=== PATIENT | female | born 1960 | race Caucasian/White ===

== ENCOUNTER 2018-11-10 22:30 | Inpatient (IN) | payer MEDICARE ==
[~2018-11-10] VITALS: Ht 167.6 cm; Wt 65.3 kg
--- NOTE | 2018-11-10 22:52 | NUR ---
BIBSELF C/O: GEN ABDOMINAL PAIN 11/15 SINCE THIS MORNING. +N/V, IN BED AWAITING MED EVAL
[2018-11-10] MEDS ORDERED: MORPHINE SULFATE INJ 4 MG/ML DISP.SYRIN ONE (22:54)
[2018-11-10] MEDS ORDERED: IV NS 0.9% 1,000 ML BAG IV ONE (23:00)
[2018-11-10] MEDS ORDERED: MORPHINE SULFATE INJ 2 MG/ML DISP.SYRIN IV ONE (23:00)
[2018-11-10 23:11] LABS: BASOPHILS # (AUTO) 0.1 /CMM (0.0-0.2); BASOPHILS % (AUTO) 0.7 % (0.0-2.0); EOSINOPHILS % (AUTO) 0.4 % (0.0-6.0); HEMATOCRIT 52 % (33-45); HEMOGLOBIN 17.8 g/dL (11.5-14.8); LYMPHOCYTES # (AUTO) 1.7 /CMM (0.8-4.8); LYMPHOCYTES % (AUTO) 14.9 % (20.0-44.0); MEAN CORPUSCULAR HGB CONC 34 g/dl (31.0-36.0); MEAN CORPUSCULAR VOLUME 92 fL (82-100); MONOCYTES # (AUTO) 0.5 /CMM (0.1-1.30); MONOCYTES % (AUTO) 4.2 % (2.0-12.0); NEUTROPHILS # (AUTO) 9.1 /CMM (1.8-8.9); NEUTROPHILS % (AUTO) 79.8 % (43.0-81.0); PLATELET COUNT (AUTO) 267 /CMM (150-450); RED BLOOD CELL COUNT(AUTO) 5.63 MIL/uL (4.0-5.2); WHITE BLOOD COUNT (AUTO) 11.4 K/uL (4.3-11.0)
[2018-11-10] MEDS ORDERED: IV NS 0.9% 250 ML IV ONE (23:12)
[2018-11-10] MEDS ORDERED: IOHEXOL-300 100 ML VIAL IV ONE (23:12)
[2018-11-10] MEDS ORDERED: CT SWABBABLE VALVE TRANS SET 1 EA INFUS.SET MC ONE (23:12)
[2018-11-10 23:18] LABS: CALCIUM, SERUM 10.6 mg/dL (8.5-10.1); CARBON DIOXIDE 21 mmol/L (21-32); CHLORIDE 99 mmol/L (98-107); CREATININE 1.5 mg/dL (0.6-1.3); GLUCOSE 135 mg/dL (74-106); POTASSIUM 3.9 mmol/L (3.5-5.1); SODIUM SERUM 139 mmol/L (136-145); UREA NITROGEN, BLOOD 21 mg/dL (7-18)
[2018-11-10 23:23] LABS: ALANINE AMINOTRANSFERASE 84 U/L (12-78); ALBUMIN 4.1 g/dL (3.4-5.0); ALKALINE PHOSPHATASE 124 U/L (46-116); ASPARTATE AMINOTRANSFERASE 62 U/L (15-37); BILIRUBIN,DIRECT 0.2 mg/dL (0.0-0.2); BILIRUBIN,TOTAL 0.7 mg/dL (0.2-1.0); LIPASE 99 U/L (73-393); TOTAL PROTEIN, SERUM 8.5 g/dL (6.4-8.2)
[2018-11-10] MEDS ORDERED: ONDANSETRON HCL/PF 4 MG/2 ML VIAL ONE (23:28)
[2018-11-10] MEDS ORDERED: ONDANSETRON HCL/PF 4 MG/2 ML VIAL IV ONE (23:30)
--- NOTE | 2018-11-11 00:58 | NUR ---
BED ASSIGNMENT 322-2
--- NOTE | 2018-11-11 01:06 | NUR ---
REPORT GIVEN TO GISSELL BELL
[2018-11-11 01:30] VITALS: BP 137/86
[2018-11-11] MEDS ORDERED: Z GUARD REMEDY 2 OZ OINT TP PRN (01:30)
[2018-11-11] MEDS ORDERED: MAG HYDROX/AL HYDROX/SIMETH 30 ML UDC PO PRN (01:30)
[2018-11-11] MEDS ORDERED: MAGNESIUM HYDROXIDE 30 ML UDC PO PRN (01:30)
[2018-11-11] MEDS ORDERED: HYDROCODONE/APAP 5/325MG 1 EACH TABLET PO PRN (01:30)
--- NOTE | 2018-11-11 01:30 | NUR ---
RN MS OPENING/ADMISSION NOTES RECEIVED PATIENT FROM ER VIA RNEY SAFELY TRANSFERRED TO BED, PATIENT IS AMBULATORY WITH STANDBY ASSIST, AWAKE ALERT AND ORIENTEDX4, RESPIRATIONS EVEN AND UNLABORED WITH EQUAL RISE AND FALL OF CHEST, IV SITE TO RIGHT AC #18G INTACT AND PATENT, NO REDNESS, NO INFILTRATION PRESENT, SKIN INTACT , RLE SCAR TISSUE PRESENT, NO REDNESS, BELONGINGS LIST DONE, PHOTO TAKEN PLACED IN CHART, VITAL SIGNS WNL, AT THIS TIME DENIES NAUSEA OR VOMITTING, AT THIS TIME DENIES PAIN. ORIENTED TO STAFF AND CALL LIGHT AND KEPT WITHIN REACH, SAFETY PRECAUTIONS IN PLACE LOW BED AND LOCKED, BED ALARM IN PLACE, PATIENT IS NPO STATUS AND AWARE, ALL NEEDS ATTENDED AT THIS TIME, WILL CONTINUE TO MONITOR AND ADDRESS NEEDS, WILL FOLLOW MD ORDERS.
[2018-11-11] MEDS: IV NS 0.9% 1,000 ML IV PRN ×2 (01:51→15:22)
[2018-11-11] MEDS: MORPHINE SULFATE INJ 2 MG/ML DISP.SYRIN IV PRN ×7 (01:52→19:34)
--- NOTE | 2018-11-11 01:52 | NUR ---
RN MS NOTES PATIENT STATES " I FEEL PAIN COMING BACK CAN I HAVE PAIN MEDICATION" RATES PAIN 7/10 DULL PAIN , VS WNL MORPHINE PRN GIVEN ORDERED, WILL CONTINUE TO MONITOR FOR EFFECTIVENESS, ROOM LIGHTS DIMMED.
[2018-11-11] MEDS ORDERED: OMEP20CA11 PO (02:37)
[2018-11-11] MEDS ORDERED: DEXT5TAB15 PO (02:38)
[2018-11-11] MEDS ORDERED: SERT20OR PO (02:38)
[2018-11-11] MEDS ORDERED: LOPE2CAP40 PO (02:38)
[2018-11-11 04:25] VITALS: BP 127/67
[2018-11-11] MEDS: ONDANSETRON HCL/PF 4 MG/2 ML VIAL IVP PRN ×3 (04:25→19:33)
--- NOTE | 2018-11-11 04:25 | NUR ---
ARABELLA MS NOTES PATIENT COMPLAINT OF FEELING NAUSEA AND DULL PAIN TO ABDOMEN AREA, 06/15. REQUESTING FOR PAIN MEDICATION AND NAUSEA MEDICATION, PRN ZOFRAN OFFERED AND GIVEN ORDERED, EMESIS BAD WITHIN REACH MORPHINE PRN GIVEN ORDERED, VS WNL. 127/67,94,93%RA, 18,97.9 Addendum: 11/11/18 at 0638 by GISSELL LOTT RN CLARIFICATION EMESIS BAG WITHIN REACH
--- NOTE | 2018-11-11 06:30 | NUR ---
RN MS NOTES PATIENT COMPLAINT OF DULL PAIN TO ABDOMEN AREA 09/15 REQUESTING FOR PAIN MEDICATION MORPHINE, VITAL SIGNS WNL, MORPHINE PRN GIVEN ORDERED, WILL CONTINUE TO MONITOR FOR EFFECTIVENESS.
--- NOTE | 2018-11-11 06:38 | NUR ---
RN MS CLOSING NOTES PATIENT IN BED AWAKE ALERT AND ORIENTEDX4, RESPIRATIONS EVEN AND UNLABORED WITH EQUAL RISE AND FALL OF CHEST, IV SITE TO RIGHT AC #18G INTACT AND PATENT, NO REDNESS, NO INFILTRATION PRESENT, IVF RUNNING ORDERED, SKIN INTACT , RLE SCAR TISSUE PRESENT, NO REDNESS, VITAL SIGNS REMAINED WNL, AT THIS TIME DENIES NAUSEA ZOFRAN EFFECTIVE, CALL LIGHT KEPT WITHIN REACH, SAFETY PRECAUTIONS IN PLACE LOW BED AND LOCKED, BED ALARM IN PLACE, PATIENT IS NPO STATUS AND AWARE, ALL NEEDS ATTENDED AT THIS TIME, WILL CONTINUE TO MONITOR AND ENDORSE TO NEXT SHIFT. SO FURTHER CHANGES SINCE ADMISSION.
[2018-11-11 07:07] LABS: BASOPHILS % (AUTO) 0.3 % (0.0-2.0); EOSINOPHILS % (AUTO) 0.4 % (0.0-6.0); HEMATOCRIT 45 % (33-45); HEMOGLOBIN 15.1 g/dL (11.5-14.8); LYMPHOCYTES % (AUTO) 14.2 % (20.0-44.0); MEAN CORPUSCULAR HGB CONC 34 g/dl (31.0-36.0); MEAN CORPUSCULAR VOLUME 92 fL (82-100); MONOCYTES # (AUTO) 0.5 /CMM (0.1-1.30); MONOCYTES % (AUTO) 7.4 % (2.0-12.0); NEUTROPHILS # (AUTO) 5.7 /CMM (1.8-8.9); NEUTROPHILS % (AUTO) 77.7 % (43.0-81.0); PLATELET COUNT (AUTO) 223 /CMM (150-450); RED BLOOD CELL COUNT(AUTO) 4.84 MIL/uL (4.0-5.2); WHITE BLOOD COUNT (AUTO) 7.3 K/uL (4.3-11.0)
[2018-11-11 07:39] LABS: ALBUMIN 3.2 g/dL (3.4-5.0); BILIRUBIN,TOTAL 0.5 mg/dL (0.2-1.0); CALCIUM, SERUM 8.5 mg/dL (8.5-10.1); POTASSIUM 3.9 mmol/L (3.5-5.1); TOTAL PROTEIN, SERUM 6.7 g/dL (6.4-8.2)
--- NOTE | 2018-11-11 07:45 | NUR ---
MS RN NOTES PATIENT RECEIVED RESTING INSIDE ROOM. AWAKE, ALERT AND ORIENTED X 4. NO ACUTE DISTRESS. DENIES ANY PAIN OR DISCOMFORT. NO CHANGES IN LOC NOTED. PATIENT REMAINS NPO AT THIS TIME, PATIENT AWARE AND VERBALIZED UNDERSTANDING. WILL CONTINUE TO MONITOR. BED LOCKED AND IN LOW POSITION. BILATERAL UPPER SIDE RAILS UP AND LOCKED. CALL LIGHT WITHIN EASY REACH
[2018-11-11 08:00] VITALS: BP 110/54
[2018-11-11] MEDS: PANTOPRAZOLE 40 MG VIAL IV SCH (08:30)
[2018-11-11 16:15] VITALS: BP 110/74
--- NOTE | 2018-11-11 18:19 | NUR ---
MS RN NOTES PATIENT SEEN AND EXAMINED BY DR NUR. WITH NEW ORDER TO START CLEAR LIQ DIET. ORDER NOTED AND CARRIED OUT. PATIENT MADE AWARE AND VERBALIZED UNDERSTANDING. FNS MADE AWARE. WILL CONTINUE TO MONITOR
--- NOTE | 2018-11-11 18:34 | NUR ---
MS RN NOTES PATIENT RESTING INSIDE ROOM. AWAKE, ALERT AND ORIENTED X 4, NO ACUTE DISTRESS. NO C/O PAIN. NO ACUTE DISTRESS. PATIENT KEPT CLEAN, DRY AND COMFORTABLE. WILL ENDORSE TO INCOMING SHIFT FOR GRISELDA. BED LOCKED AND IN LOW POSITION. BILATERAL UPPER SIDE RAILS UP AND LOCKED. CALL LIGHT WITHIN EASY REACH
--- NOTE | 2018-11-11 19:50 | NUR ---
MS RN OPENING NOTES RECEIVED PATIENT FROM MORNING SHIFT, ALERT AND ORIENTED X 4. VERBALLY RESPONSIVE AND ABLE TO FOLLOW DIRECTIONS. BREATHING REGULAR AND UNLABORED ON ROOM AIR. RIGHT AC G2O IV LINE INTACT AND PATENT INFUSING WELL WITH NO BLEEDING OR S/S OF INFECTION/INFILTRATION OBSERVED. ASSISTED BRP WITH CLEAR YELLOW URINE. ON CLEAR LIQUID DIET TOLERATING AND COOPERATING WELL. COMPLAINED OF 8/10 ABDOMINAL PAIN, MORPHINE GIVEN VIA IV PUSH. ALSO COMPLAINED OF NAUSEA, ZOFRAN GIVEN VIA IV PUSH. NON-PHARMACOLOGICAL INTERVENTIONS DONE. BED LOW AND LOCKED ON SEMI FOWLERS POSITION. WILL CONTINUE TO MONITOR.
[2018-11-11 20:00] VITALS: BP 98/62
[2018-11-12] MEDS: MORPHINE SULFATE INJ 2 MG/ML DISP.SYRIN IV PRN (01:58)
[2018-11-12] MEDS: ONDANSETRON HCL/PF 4 MG/2 ML VIAL IVP PRN ×2 (01:58→09:10)
--- NOTE | 2018-11-12 02:00 | NUR ---
MS RN NOTES COMPLAINED OF 8/10 ABDOMINAL PAIN, MORPHINE GIVEN VIA IV PUSH. NON-PHARMACOLOGICAL INTERVENTIONS PROVIDED. VITAL SIGNS WITHIN NORMAL LIMITS. WILL CONTINUE TO MONITOR.
[2018-11-12 06:22] LABS: BASOPHILS % (AUTO) 0.2 % (0.0-2.0); EOSINOPHILS % (AUTO) 3.2 % (0.0-6.0); HEMATOCRIT 39 % (33-45); LYMPHOCYTES # (AUTO) 0.5 /CMM (0.8-4.8); LYMPHOCYTES % (AUTO) 24.8 % (20.0-44.0); MEAN CORPUSCULAR HGB CONC 33 g/dl (31.0-36.0); MEAN CORPUSCULAR VOLUME 93 fL (82-100); MONOCYTES # (AUTO) 0.2 /CMM (0.1-1.30); MONOCYTES % (AUTO) 8.8 % (2.0-12.0); NEUTROPHILS # (AUTO) 1.3 /CMM (1.8-8.9); PLATELET COUNT (AUTO) 160 /CMM (150-450); WHITE BLOOD COUNT (AUTO) 2.1 K/uL (4.3-11.0)
--- NOTE | 2018-11-12 06:25 | NUR ---
MS RN CLOSING NOTES PATIENT IN BED ALERT AND ORIENTED X 4. VERBALLY RESPONSIVE AND ABLE TO FOLLOW DIRECTIONS. BREATHING REGULAR AND UNLABORED ON ROOM AIR. RIGHT AC G20 IV LINE INTACT AND PATENT INFUSING WELL WITH NO BLEEDING OR S/S OF INFECTION/INFILTRATION OBSERVED. BRP WITH ASSIST. MAINTAINED ON CLEAR LIQUID DIET. NO EPISODE OF VOMITING NOTED WITHIN THE SHIFT. BED LOW AND LOCKED ON SEMI FOWLERS POSITION. WILL ENDORSE TO MORNING SHIFT FOR GRISELDA.
[2018-11-12 06:26] LABS: CALCIUM, SERUM 7.5 mg/dL (8.5-10.1); PHOSPHORUS 2.4 mg/dL (2.5-4.9)
[2018-11-12 06:28] LABS: POTASSIUM 2.7 mmol/L (3.5-5.1)
[2018-11-12 06:29] LABS: MAGNESIUM 1.2 mg/dL (1.8-2.4)
[2018-11-12 06:35] LABS: THYROID STIMULATING HORMONE 0.144 uIU/mL (0.358-3.74)
--- NOTE | 2018-11-12 07:46 | NUR ---
MS RN NOTES PATIENT RECEIVED SLEEPING. EASILY AROUSABLE THROUGH VERBAL AND TACTILE STIMULI. A/O X 4. NO ACUTE DISTRESS. NO CHANGES IN LOC NOTED. PATIENT CALM AND RELAXED. IVF INFUSING, PATIENT TOLERATING WELL. WILL CONTINUE TO MONITOR. BED LOCKED AND IN LOW POSITION. BILATERAL UPPER SIDE RAILS UP AND LOCKED. CALL LIGHT WITHIN EASY REACH
[2018-11-12 08:00] VITALS: BP 102/43
[2018-11-12 08:17] LABS: BAND % (MANUAL) 17 % (0.0-5.0); EOSINOPHILS % (MANUAL) 6 % (0-4); LYMPHOCYTES % (MANUAL) 16 % (16-48); METAMYELOCYTES % 1 % (0-0); MONOCYTES % (MANUAL) 11 % (0-11.0); NEUTROPHILS % (MANUAL) 49 (42-76)
[2018-11-12] MEDS: ACETAMINOPHEN 325 MG TABLET PO PRN ×2 (08:19→23:06)
[2018-11-12] MEDS: PANTOPRAZOLE 40 MG VIAL IV SCH (08:19)
[2018-11-12] MEDS ORDERED: NEUTRA PHOS 1 POWD.PACKET PO ONE (09:00)
--- NOTE | 2018-11-12 09:20 | NUR ---
MS RN NOTES PATIENT LEFT UNIT BY WHEELCHAIR FOR BOWEL FOLLOW THROUGH.
[2018-11-12] MEDS ORDERED: DIATR MEGLU/DIATRIZOATE SODIUM 120 ML BOTTLE (GASTROGRAPHIN) ONE (09:30)
--- NOTE | 2018-11-12 11:15 | NUR ---
MS RN NOTES PATIENT BACK AT UNIT IN STABLE CONDITION. WILL CONTINUE TO MONITOR
[2018-11-12] MEDS: POTASSIUM CL. PREMIX PERIPHER. 50 ML IV SCH ×4 (12:59→17:33)
[2018-11-12] MEDS: Magnesium 1GM/D5W 100ML PREMIX 100 ML IV SCH ×4 (13:00→17:33)
[2018-11-12] MEDS: IV NS 0.9% 1,000 ML IV PRN (13:00)
[2018-11-12 16:00] VITALS: BP 106/68
--- NOTE | 2018-11-12 18:52 | NUR ---
MS RN NOTES PATIENT RESTING INSIDE ROOM. AWAKE, ALERT AND ORIENTED. NO ACUTE DISTRESS. IVF INFUSING WELL. MAINTAINED SAFETY PRECAUTIONS. PATIENT KEPT CLEAN, DRY AND COMFORTABLE. WILL ENDORSE TO INCOMING SHIFT FOR GRISELDA. BED LOCKED AND IN LOW POSITION. BILATERAL UPPER SIDE RAILS UP AND LOCKED. CALL LIGHT WITHIN EASY REACH
--- NOTE | 2018-11-12 19:45 | NUR ---
MS RN OPENING NOTES RECEIVED PATIENT FROM MORNING SHIFT, ALERT AND ORIENTED X 4. VERBALLY RESPONSIVE AND ABLE TO FOLLOW DIRECTIONS. BREATHING REGULAR AND UNLABORED ON ROOM AIR. RIGHT FOREARM G22 IV LINE INTACT AND PATENT INFUSING WELL WITH NO BLEEDING OR S/S OF INFECTION/INFILTRATION OBSERVED. STARTED ON REGULAR DIET TOLERATING WELL. NO COMPLAINTS OF PAIN/DISCOMFORT REPORTED OF THE TIME. BED LOW AND LOCKED ON SEMI FOWLERS POSITION. WILL CONTINUE TO MONITOR.
[2018-11-12 20:00] VITALS: BP 101/51
--- NOTE | 2018-11-12 23:10 | NUR ---
MS RN NOTES PATIENT COMPLAINED OF 3/10 HEADACHE, TYLENOL 650MG GIVEN BY MOUTH. NON-PHARMACOLOGICAL INTERVENTIONS PROVIDED. VITAL SIGN WNL. WILL CONTINUE TO MONITOR.
--- NOTE | 2018-11-12 23:42 | NUR ---
MS RN NOTES COMPLAINED OF "SEASONAL ALLERGIC REACTION" WITH REPORTS OF ITCHING AND WATERY EYES. CALLED AND SPOKE TO DAVID VARGHESE WITH ORDERS TO GIVE BENADRYL 25MG TABLET BY MOUTH EVERY 6HRS PRN, NOTED AND CARRIED OUT. WILL CONTINUE TO MONITOR.
[2018-11-12] MEDS: diphenhydrAMINE HCL 25 MG CAPSULE PO PRN (23:55)
--- NOTE | 2018-11-13 06:27 | NUR ---
MS RN CLOSING NOTES PATIENT IN BED ALERT AND ORIENTED X 4. VERBALLY RESPONSIVE AND ABLE TO FOLLOW DIRECTIONS. BREATHING REGULAR AND UNLABORED ON ROOM AIR. RIGHT AC G20 AND RIGHT FOREARM G22 IV LINES INTACT AND PATENT INFUSING WELL WITH NO BLEEDING OR S/S OF INFECTION/INFILTRATION OBSERVED. BRP WITH ASSIST. STILL NOTED WITH DIARRHEA. NO COMPLAINTS OF NAUSEA/VOMITING REPORTED WITHIN THE SHIFT. BED LOW AND LOCKED ON SEMI FOWLERS POSITION. WILL ENDORSE TO MORNING SHIFT FOR GRISELDA.
[2018-11-13 06:54] LABS: ALBUMIN 2.3 g/dL (3.4-5.0); BILIRUBIN,TOTAL 0.4 mg/dL (0.2-1.0); CALCIUM, SERUM 8.2 mg/dL (8.5-10.1); CREATININE 0.9 mg/dL (0.6-1.3); MAGNESIUM 2.4 mg/dL (1.8-2.4); PHOSPHORUS 1.7 mg/dL (2.5-4.9); TOTAL PROTEIN, SERUM 5.4 g/dL (6.4-8.2)
[2018-11-13 06:55] LABS: BASOPHILS % (AUTO) 0.3 % (0.0-2.0); EOSINOPHILS % (AUTO) 2.2 % (0.0-6.0); HEMATOCRIT 35 % (33-45); LYMPHOCYTES # (AUTO) 1.2 /CMM (0.8-4.8); LYMPHOCYTES % (AUTO) 22.7 % (20.0-44.0); MEAN CORPUSCULAR HGB CONC 34 g/dl (31.0-36.0); MEAN CORPUSCULAR VOLUME 92 fL (82-100); MONOCYTES # (AUTO) 0.4 /CMM (0.1-1.30); NEUTROPHILS # (AUTO) 3.6 /CMM (1.8-8.9); NEUTROPHILS % (AUTO) 67.8 % (43.0-81.0); PLATELET COUNT (AUTO) 149 /CMM (150-450); RED BLOOD CELL COUNT(AUTO) 3.82 MIL/uL (4.0-5.2); WHITE BLOOD COUNT (AUTO) 5.4 K/uL (4.3-11.0)
--- NOTE | 2018-11-13 07:32 | NUR ---
MS RN NOTES PATIENT RECEIVED RESTING INSIDE ROOM. AWAKE, ALERT AND ORIENTED X 4, VERBALLY RESPONSIVE AND RESPONDS TO VERBAL AND TACTILE STIMULI. BREATHING EVEN AND UNLABORED. NO ACUTE DISTRESS. NO C/O PAIN AT THIS TIME. IV INTACT AND PATENT. SAFETY PRECAUTIONS IN PLACE. WILL CONTINUE TO MONITOR. BED LOCKED AND IN LOW POSITION. BILATERAL UPPER SIDE RAILS UP AND LOCKED. CALL LIGHT WITHIN EASY REACH
[2018-11-13 07:35] LABS: POTASSIUM 2.5 mmol/L (3.5-5.1)
[2018-11-13 08:00] VITALS: BP 115/55
[2018-11-13] MEDS: LOPERAMIDE HCL (2 MG CAP) 2 MG CAPSULE PO PRN (09:47)
[2018-11-13] MEDS: PANTOPRAZOLE 40 MG VIAL IV SCH (09:47)
[2018-11-13] MEDS ORDERED: DIPHENOXYLATE HCL/ATROP SULF 1 UDTAB TABLET PO PRN (11:00)
--- NOTE | 2018-11-13 11:08 | NUR ---
MS RN NOTES PATIENT SEEN AND EXAMINED BY DR WILLIAM, WITH NEW ORDERS FOR IV REPLACEMENTS FOR POTASSIUM AND PHOSPHORUS. NOTED AND CARRIED OUT
[2018-11-13] MEDS: POTASSIUM CL. PREMIX PERIPHER. 50 ML IV SCH ×6 (11:28→18:19)
[2018-11-13] MEDS: Potassium Phosphate meq 11 MEQ in IV D5W 100 ML IV SCH ×2 (11:39→15:37)
[2018-11-13] MEDS: diphenhydrAMINE HCL 25 MG CAPSULE PO PRN ×2 (14:03→23:30)
[2018-11-13 16:00] VITALS: BP 143/90
[2018-11-13] MEDS: ACETAMINOPHEN 325 MG TABLET PO PRN (17:28)
--- NOTE | 2018-11-13 18:54 | NUR ---
MS RN NOTES PATIENT RESTING INSIDE ROOM. AWAKE, ALERT AND ORIENTED X 4, NO ACUTE DISTRESS. DENIES ANY PAIN OR DISCOMFORT. NO CHANGES IN LOC NOTED. IVF INFUSING AND PATIENT TOLERATING WELL. WILL ENDORSE TO INCOMING SHIFT FOR GRISELDA. BED LOCKED AND IN LOW POSITION. BILATERAL UPPER SIDE RAILS UP AND LOCKED. CALL LIGHT WITHIN EASY REACH
--- NOTE | 2018-11-13 19:10 | NUR ---
MS RN NOTES RECEIVED PT IN BED AWAKE AND ABLE TO MAKE NEEDS KNOWN. PT A/O X3. RESPIRATIONS EVEN AND UNLABORED WITH NO S/S OF ACUTE DISTRESS OR SOB NOTED. PT DENIES ANY PAIN OR DISCOMFORT AT THIS TIME. SAFETY MEASURES IN PLACE WITH BED IN LOWEST LOCKED POSITION WITH SIDE RAILS UP X2. CALL LIGHT WITHIN REACH. WILL CONTINUE TO MONITOR.
[2018-11-13 20:00] VITALS: BP 122/57
[2018-11-13] MEDS: HEPARIN SODIUM, PORCINE 5000 UNITS/1 ML VIAL SQ SCH (21:57)
[2018-11-14 06:35] LABS: BASOPHILS % (AUTO) 0.3 % (0.0-2.0); EOSINOPHILS % (AUTO) 2.6 % (0.0-6.0); HEMATOCRIT 33 % (33-45); HEMOGLOBIN 11.3 g/dL (11.5-14.8); LYMPHOCYTES # (AUTO) 1.4 /CMM (0.8-4.8); LYMPHOCYTES % (AUTO) 25.9 % (20.0-44.0); MEAN CORPUSCULAR HGB CONC 34 g/dl (31.0-36.0); MEAN CORPUSCULAR VOLUME 91 fL (82-100); MONOCYTES # (AUTO) 0.4 /CMM (0.1-1.30); MONOCYTES % (AUTO) 6.9 % (2.0-12.0); NEUTROPHILS # (AUTO) 3.5 /CMM (1.8-8.9); NEUTROPHILS % (AUTO) 64.3 % (43.0-81.0); PLATELET COUNT (AUTO) 181 /CMM (150-450); RED BLOOD CELL COUNT(AUTO) 3.64 MIL/uL (4.0-5.2); WHITE BLOOD COUNT (AUTO) 5.5 K/uL (4.3-11.0)
[2018-11-14 06:52] LABS: CALCIUM, SERUM 8.1 mg/dL (8.5-10.1); CREATININE 0.7 mg/dL (0.6-1.3); MAGNESIUM 1.6 mg/dL (1.8-2.4)
[2018-11-14 06:57] LABS: POTASSIUM 2.8 mmol/L (3.5-5.1)
[2018-11-14] MEDS ORDERED: POTASSIUM CL. PREMIX PERIPHER. 50 ML IV SCH (07:30)
[2018-11-14] MEDS ORDERED: Magnesium 1GM/D5W 100ML PREMIX 100 ML IV SCH (07:30)
[2018-11-14] MEDS ORDERED: POTASSIUM CHLORIDE 20 MEQ TAB.PRT.SR PO ONE (07:30)
--- NOTE | 2018-11-14 07:30 | NUR ---
MS RN OPENING NOTES RECEIVED PATIENT IN BED RESTING COMFORTABLY IN MODERATE HIGH BACK REST. A/O X 3, NO ACUTE DISTRESS NOTED AT THIS TIME. DENIES ANY PAIN OR DISCOMFORT AT THIS TIME. IV ACCESS INFILTRATED. SAFETY MEASURES IN PLACE, BED LOCKED AND IN LOW POSITION. BILATERAL UPPER SIDE RAILS UP AND LOCKED. CALL LIGHT WITHIN EASY REACH. WILL CONTINUE TO MONITOR.
[2018-11-14] MEDS ORDERED: PANTOPRAZOLE 40 MG TABLET.DR PO SCH (07:45)
--- NOTE | 2018-11-14 07:45 | NUR ---
RN NOTES PATIENT REFUSED TO INSERT NEW IV ACCESS AND MEDICATIONS, EXPLAINED RISKS AND BENEFITS BUT STILL REFUSED. PER PATIENT SHE WANTS TO TALK TO THE MD FIRST. WILL F/U AND CONTINUE TO MONITOR.
[2018-11-14 08:00] VITALS: BP 120/74
--- NOTE | 2018-11-14 08:07 | NUR ---
MS RN NOTES PT IN BED AWAKE AND ABLE TO MAKE NEEDS KNOWN. PT A/O X3. RESPIRATIONS EVEN AND UNLABORED WITH NO S/S OF ACUTE DISTRESS OR SOB NOTED THROUGHOUT SHIFT. PT KEPT CLEAN, DRY, AND COMFORTABLE. PT DENIES ANY PAIN OR DISCOMFORT AT THIS TIME. SAFETY MEASURES IN PLACE WITH BED IN LOWEST LOCKED POSITION WITH SIDE RAILS UP X2. CALL LIGHT WITHIN REACH. WILL ENDORSE TO ONCOMING NURSE FOR GRISELDA.
[2018-11-14] MEDS: LOPERAMIDE HCL (2 MG CAP) 2 MG CAPSULE PO PRN (09:50)
[2018-11-14] MEDS: HEPARIN SODIUM, PORCINE 5000 UNITS/1 ML VIAL SQ SCH (09:50)
[2018-11-14] MEDS: POTASSIUM CHLORIDE 20 MEQ TAB.PRT.SR PO SCH ×2 (10:44→12:49)
[2018-11-14] MEDS: ONDANSETRON HCL/PF 4 MG/2 ML VIAL IVP PRN (10:50)
[2018-11-14] MEDS: Magnesium 1GM/D5W 100ML PREMIX 100 ML IV SCH ×2 (10:51→12:28)
[2018-11-14] MEDS ORDERED: K PHOS NEUTRAL 250 MG TABLET PO ONE (13:30)
[2018-11-14 15:47] VITALS: BP 132/70
[2018-11-14 16:12] LABS: CALCIUM, SERUM 8.1 mg/dL (8.5-10.1); CREATININE 0.7 mg/dL (0.6-1.3)
[2018-11-14] MEDS: IV NS 0.9% 1,000 ML IV PRN (16:12)
--- NOTE | 2018-11-14 17:35 | NUR ---
MS RN NOTES I WAS CALLED BY PATIENT TO HER ROOM @ 1710, PATIENT STATES THAT SHE WANTS TO GO HOME, PER PATIENT "I WANT TO GO HOME NOW, I HAVE A LIFE TO LIVE. I WANT TO GO HOME NOW. I WILL SIGN ANY PAPER BUT I AM LEAVING NOW " EXPLAINED TO THE PATIENT THE RISKS OF LEAVING AMA BUT PATIENT STILL INSIST TO LEAVE. IV ACCESS REMOVED AND APPLIED PRESSURE DRESSINGS. ID BAND REMOVED. PATIENT LEFT AMBULATORY @ 17:30. CHARGE NURSE MADE AWARE.
== END 2018-11-14 17:30 | disposition left against medical advice (07) | DRG 388 ==
LOC: ER 22:32 → EDBD 11-11 01:08 → MED 11-11 01:08
PROVIDERS: ADMIT Nurse Practitioner Acute Care; ATTEND Nurse Practitioner Acute Care
DX: K56.600 Partial intestinal obstruction, unspecified as to cause (principal); N17.0 Acute kidney failure with tubular necrosis; R65.11 Systemic inflammatory response syndrome (SIRS) of non-infectious origin with acute organ dysfunction; Z87.11 Personal history of peptic ulcer disease; Z90.49 Acquired absence of other specified parts of digestive tract; E83.42 Hypomagnesemia; E87.6 Hypokalemia; Z83.3 Family history of diabetes mellitus; Z98.890 Other specified postprocedural states; Z79.899 Other long term (current) drug therapy; Z91.018 Allergy to other foods; Z91.048 Other nonmedicinal substance allergy status; E86.9 Volume depletion, unspecified; E83.39 Other disorders of phosphorus metabolism; Z80.9 Family history of malignant neoplasm, unspecified; Z91.5 Personal history of self-harm; K52.9 Noninfective gastroenteritis and colitis, unspecified
CPT/HCPCS: 36415; 74250-TC; 80048-TC; 80053-TC; 80061-TC; 80076-TC; 83690-TC; 83735-TC; 84100-TC; 84439-TC; 84443-TC; 84484-TC; 85025-TC; 87045-TC; 87081-TC; 87177; 87209; 89055; C9113; G0378; J1644; J2270; J2405; J3475; J3480; J3490; J7030; J7042; J7050; J7060; Q0163; Q9963; Q9967

== ENCOUNTER 2022-09-09 11:09 | Inpatient (IN) | payer MEDICAID, MEDICARE ==
[~2022-09-09] VITALS: Ht 165.1 cm; Wt 67.6 kg
[~2022-09-09 11:09] MED LIST: DEXT5TAB15 PO; LOPE2CAP40 PO; OMEP20CA15 PO; SERT20OR PO
[2022-09-09] MEDS: Magnesium 1GM/D5W 100ML PREMIX 100 ML IV SCH ×2 (11:15→12:50)
[2022-09-09] MEDS ORDERED: ONDANSETRON HCL/PF 4 MG/2 ML VIAL ONE (11:20)
[2022-09-09 11:28] LABS: BASOPHILS # (AUTO) 0.1 K/uL (0.0-0.2); BASOPHILS % (AUTO) 0.6 % (0.0-2.0); EOSINOPHILS # (AUTO) 0.2 K/uL (0.0-0.7); EOSINOPHILS % (AUTO) 2.3 % (0.0-6.0); HEMATOCRIT 48 % (33-45); MEAN CORPUSCULAR HEMOGLOBIN 31 PG (26.0-33.0); MEAN CORPUSCULAR HGB CONC 34 g/dl (31.0-36.0); MEAN CORPUSCULAR VOLUME 91 fL (82-100); MONOCYTES # (AUTO) 0.7 K/uL (0.1-1.30); MONOCYTES % (AUTO) 7.4 % (2.0-12.0); NEUTROPHILS # (AUTO) 3.5 K/uL (1.8-8.9); NEUTROPHILS % (AUTO) 36.7 % (43.0-81.0); PLATELET COUNT (AUTO) 182 K/uL (150-450); RED BLOOD CELL COUNT(AUTO) 5.25 MIL/uL (4.0-5.2); RED CELL DISTRIBUTION WIDTH 14.4 % (11.5-15.0); WHITE BLOOD COUNT (AUTO) 9.5 K/uL (4.3-11.0)
[2022-09-09] MEDS ORDERED: ONDANSETRON HCL/PF 4 MG/2 ML VIAL IVP ONE (11:30)
[2022-09-09] MEDS ORDERED: ACTIVATED CHARCOAL 25 GM/120 ML TUBE PO ONE (11:30)
[2022-09-09] MEDS ORDERED: IV NS 0.9% 1,000 ML BAG IV ONE (11:30)
[2022-09-09 11:36] LABS: CALCIUM, SERUM 9.2 mg/dL (8.5-10.1); CARBON DIOXIDE 21 mmol/L (21-32); CHLORIDE 103 mmol/L (98-107); CREATININE 1.2 mg/dL (0.6-1.3); GLUCOSE 208 mg/dL (74-106); POTASSIUM 2.9 mmol/L (3.5-5.1); SODIUM SERUM 138 mmol/L (136-145); UREA NITROGEN, BLOOD 15 mg/dL (7-18)
[2022-09-09 11:41] LABS: ACETAMINOPHEN < 10 ug/ml (10-30); ALANINE AMINOTRANSFERASE 27 U/L (12-78); ALBUMIN 3.1 g/dL (3.4-5.0); ALCOHOL, BLOOD < 3 mg/dL (0-10); ALKALINE PHOSPHATASE 104 U/L (46-116); ASPARTATE AMINOTRANSFERASE 21 U/L (15-37); BILIRUBIN,DIRECT 0.1 mg/dL (0.0-0.2); BILIRUBIN,TOTAL 0.5 mg/dL (0.2-1.0); TOTAL PROTEIN, SERUM 6.5 g/dL (6.4-8.2)
[2022-09-09 11:42] LABS: SALICYLATE < 2.3 mg/dL (2.8-20.0)
[2022-09-09 11:49] LABS: THYROID STIMULATING HORMONE 1.104 uIU/mL (0.358-3.74)
[2022-09-09] MEDS ORDERED: Magnesium 1GM/D5W 100ML PREMIX 100 ML IV ONE ×2 (11:50→12:53)
[2022-09-09] MEDS ORDERED: POTASSIUM CL. PREMIX PERIPHER. 50 ML ONE ×4 (12:10→15:25)
[2022-09-09] MEDS: POTASSIUM CL. PREMIX PERIPHER. 50 ML IV SCH ×4 (12:15→15:15)
[2022-09-09] MEDS ORDERED: IV NS 0.9% 1,000 ML IV ONE ×2 (12:30→14:30)
[2022-09-09 13:43] LABS: ADD URINE CULTURE YES; APPEARANCE,URINE TURBID (CLEAR); BACTERIA,URINE Moderate /HPF (None Seen); BILIRUBIN,URINE 1+ (NEGATIVE); BLOOD, URINE TRACE-INTA Ery/uL (NEGATIVE); COLOR,URINE DARK YELLOW (YELLOW); KETONES,URINE TRACE mg/dL (NEGATIVE); LEUKOCYTE ESTERASE ,URINE 1+ (NEGATIVE); NITRITE, URINE POSITIVE (NEGATIVE); PROTEIN,URINE 1+ mg/dl (NEGATIVE); RBC,URINE 0-2 /HPF (0-2); SQUAMOUS EPITHELIAL CELL,UR Rare /HPF (None Seen); UGLUCOSE NEGATIVE (NEGATIVE); WBC,URINE 21-50 /HPF (0-3)
[2022-09-09 13:57] LABS: AMPHETAMINE, URINE NEGATIVE (NEGATIVE); BARBITURATE, URINE NEGATIVE (NEGATIVE); BENZODIAZEPINE, URINE NEGATIVE (NEGATIVE); CANNABINOID, URINE NEGATIVE (NEGATIVE); COCCAINE, URINE NEGATIVE (NEGATIVE); OPIATE, URINE NEGATIVE (NEGATIVE); PHENCYCLIDINE SCREEN,URINE NEGATIVE (NEGATIVE)
[2022-09-09] MEDS ORDERED: CEFTRIAXONE 1GM BAG (ER ONLY) 1 GM/50 ML PIGGYBACK IV ONE (14:00)
[2022-09-09] MEDS ORDERED: CEFTRIAXONE 1GM BAG (ER ONLY) 50 ML IV ONE (14:05)
[2022-09-09] MEDS ORDERED: SODIUM BICARBONATE SYR 100 MEQ in IV NS 0.9% 1,000 ML IV ONE (18:30)
[2022-09-09] MEDS ORDERED: SODIUM BICARBONATE SYR 100 MEQ in IV NS 0.9% 1,000 ML IV PRN (18:30)
[2022-09-09] MEDS ORDERED: ZOLPIDEM TARTRATE 5 MG TABLET PO PRN (22:30)
[2022-09-09] MEDS ORDERED: MAG HYDROX/AL HYDROX/SIMETH 30 ML UDC PO PRN (22:30)
[2022-09-09] MEDS ORDERED: MAGNESIUM HYDROXIDE 30 ML UDC PO PRN (22:30)
[2022-09-09] MEDS ORDERED: Z GUARD REMEDY 4 OZ OINT TP PRN (22:30)
[2022-09-09 23:06] LABS: ALBUMIN 2.3 g/dL (3.4-5.0); BILIRUBIN,TOTAL 0.3 mg/dL (0.2-1.0); CALCIUM, SERUM 7.9 mg/dL (8.5-10.1); MAGNESIUM 2.1 mg/dL (1.8-2.4); POTASSIUM 3.5 mmol/L (3.5-5.1); TOTAL PROTEIN, SERUM 4.9 g/dL (6.4-8.2)
[2022-09-10] MEDS: IV NS 0.9% 1,000 ML IV PRN ×2 (04:02→14:27)
[2022-09-10 05:58] LABS: BASOPHILS % (AUTO) 0.7 % (0.0-2.0); EOSINOPHILS # (AUTO) 0.1 K/uL (0.0-0.7); EOSINOPHILS % (AUTO) 1.9 % (0.0-6.0); HEMATOCRIT 45 % (33-45); HEMOGLOBIN 14.7 g/dL (11.5-14.8); LYMPHOCYTES # (AUTO) 2.2 K/uL (0.8-4.8); MEAN CORPUSCULAR HEMOGLOBIN 30 PG (26.0-33.0); MEAN CORPUSCULAR HGB CONC 33 g/dl (31.0-36.0); MEAN CORPUSCULAR VOLUME 93 fL (82-100); MONOCYTES # (AUTO) 0.4 K/uL (0.1-1.30); MONOCYTES % (AUTO) 5.5 % (2.0-12.0); NEUTROPHILS # (AUTO) 3.7 K/uL (1.8-8.9); NEUTROPHILS % (AUTO) 57.9 % (43.0-81.0); PLATELET COUNT (AUTO) 145 K/uL (150-450); RED BLOOD CELL COUNT(AUTO) 4.86 MIL/uL (4.0-5.2); RED CELL DISTRIBUTION WIDTH 14.8 % (11.5-15.0); WHITE BLOOD COUNT (AUTO) 6.4 K/uL (4.3-11.0)
[2022-09-10 06:17] LABS: CALCIUM, SERUM 8.6 mg/dL (8.5-10.1); CREATININE 0.9 mg/dL (0.6-1.3); MAGNESIUM 2.2 mg/dL (1.8-2.4); PHOSPHORUS 2.1 mg/dL (2.5-4.9); POTASSIUM 3.2 mmol/L (3.5-5.1)
[2022-09-10 08:53] VITALS: BP 117/50; TEMP 98.1
[2022-09-10] MEDS ORDERED: PANTOPRAZOLE 40 MG VIAL IV SCH (09:00)
[2022-09-10] MEDS: POTASSIUM CHLORIDE 20 MEQ TAB.PRT.SR PO SCH ×2 (10:14→11:26)
[2022-09-10] MEDS: POTASSIUM PHOSPHATE MM 7.5 MMOL in IV NS 0.9% 100 ML IV SCH ×2 (10:25→13:27)
[2022-09-10] MEDS ORDERED: TRAZ-182 PO (11:19)
[2022-09-10] MEDS ORDERED: SERT25TA PO (11:19)
[2022-09-10] MEDS ORDERED: DIPH25TA25 PO (11:19)
[2022-09-10 12:00] VITALS: BP 93/52; TEMP 98.3; O2SAT 98
[2022-09-10 16:00] VITALS: BP 91/59; TEMP 98.4; O2SAT 98
[2022-09-10 20:00] VITALS: BP 108/42; TEMP 99.6; O2SAT 98
[2022-09-11] VITALS: BP 101/53; TEMP 99.6; O2SAT 98
[2022-09-11 04:00] VITALS: BP 109/58; TEMP 99.2; O2SAT 94
[2022-09-11 06:15] LABS: BASOPHILS % (AUTO) 0.2 % (0.0-2.0); EOSINOPHILS # (AUTO) 0.3 K/uL (0.0-0.7); EOSINOPHILS % (AUTO) 7.1 % (0.0-6.0); HEMATOCRIT 43 % (33-45); HEMOGLOBIN 14.2 g/dL (11.5-14.8); LYMPHOCYTES # (AUTO) 0.4 K/uL (0.8-4.8); LYMPHOCYTES % (AUTO) 7.7 % (20.0-44.0); MEAN CORPUSCULAR HEMOGLOBIN 30 PG (26.0-33.0); MEAN CORPUSCULAR HGB CONC 33 g/dl (31.0-36.0); MEAN CORPUSCULAR VOLUME 92 fL (82-100); MONOCYTES # (AUTO) 0.2 K/uL (0.1-1.30); MONOCYTES % (AUTO) 3.4 % (2.0-12.0); NEUTROPHILS # (AUTO) 3.8 K/uL (1.8-8.9); NEUTROPHILS % (AUTO) 81.6 % (43.0-81.0); PLATELET COUNT (AUTO) 152 K/uL (150-450); RED BLOOD CELL COUNT(AUTO) 4.71 MIL/uL (4.0-5.2); RED CELL DISTRIBUTION WIDTH 14.6 % (11.5-15.0); WHITE BLOOD COUNT (AUTO) 4.6 K/uL (4.3-11.0)
[2022-09-11] MEDS: IV NS 0.9% 1,000 ML IV PRN ×2 (06:23→22:52)
[2022-09-11 06:43] LABS: CALCIUM, SERUM 8.5 mg/dL (8.5-10.1); MAGNESIUM 1.8 mg/dL (1.8-2.4); PHOSPHORUS 3.2 mg/dL (2.5-4.9); POTASSIUM 3.8 mmol/L (3.5-5.1)
[2022-09-11] MEDS: ACETAMINOPHEN 325 MG TABLET PO PRN ×2 (07:42→18:28)
[2022-09-11 08:00] VITALS: BP 127/73; TEMP 99; O2SAT 97
[2022-09-11] MEDS: PANTOPRAZOLE 40 MG TABLET.DR PO SCH (08:51)
[2022-09-11] MEDS: PIPERACILLIN /TAZOBACTAM 3.375 G in IV D5W 100 ML IV SCH ×2 (10:21→17:00)
[2022-09-11 12:00] VITALS: BP 90/47; TEMP 98; O2SAT 97
[2022-09-11 16:00] VITALS: BP 109/47; TEMP 99; O2SAT 97
[2022-09-11 20:00] VITALS: BP 104/43; TEMP 102.9; O2SAT 100
[2022-09-11] MEDS ORDERED: IBUPROFEN 400 MG TABLET PO PRN (20:30)
[2022-09-12] VITALS: BP 89/40; TEMP 98; O2SAT 100
[2022-09-12] MEDS: PIPERACILLIN /TAZOBACTAM 3.375 G in IV D5W 100 ML IV SCH ×3 (01:51→17:30)
[2022-09-12 04:00] VITALS: BP_SYST 129; BP_SYST 83; BP_DIAS 41; BP_DIAS 79; TEMP 98; TEMP 98.2; O2SAT 100
[2022-09-12 06:57] LABS: EOSINOPHILS # (AUTO) 0.4 K/uL (0.0-0.7); EOSINOPHILS % (AUTO) 4.9 % (0.0-6.0); HEMATOCRIT 40 % (33-45); LYMPHOCYTES # (AUTO) 0.2 K/uL (0.8-4.8); LYMPHOCYTES % (AUTO) 3.3 % (20.0-44.0); MEAN CORPUSCULAR HEMOGLOBIN 30 PG (26.0-33.0); MEAN CORPUSCULAR HGB CONC 33 g/dl (31.0-36.0); MEAN CORPUSCULAR VOLUME 92 fL (82-100); MONOCYTES # (AUTO) 0.1 K/uL (0.1-1.30); MONOCYTES % (AUTO) 1.1 % (2.0-12.0); NEUTROPHILS # (AUTO) 6.6 K/uL (1.8-8.9); NEUTROPHILS % (AUTO) 90.7 % (43.0-81.0); PLATELET COUNT (AUTO) 113 K/uL (150-450); RED BLOOD CELL COUNT(AUTO) 4.32 MIL/uL (4.0-5.2); RED CELL DISTRIBUTION WIDTH 14.8 % (11.5-15.0); WHITE BLOOD COUNT (AUTO) 7.2 K/uL (4.3-11.0)
[2022-09-12 07:17] LABS: CREATININE 1.1 mg/dL (0.6-1.3)
[2022-09-12 07:29] LABS: MAGNESIUM 1.2 mg/dL (1.8-2.4)
[2022-09-12 08:00] VITALS: BP 98/48; TEMP 98.2; O2SAT 99
[2022-09-12] MEDS: PANTOPRAZOLE 40 MG TABLET.DR PO SCH (08:06)
[2022-09-12] MEDS: ACETAMINOPHEN 325 MG TABLET PO PRN ×2 (09:40→21:30)
[2022-09-12] MEDS ORDERED: MAGNESIUM OXIDE 400 MG TABLET PO ONE (11:30)
[2022-09-12] MEDS: POTASSIUM CHLORIDE 20 MEQ TAB.PRT.SR PO SCH ×3 (11:52→12:57)
[2022-09-12 12:00] VITALS: BP 86/51; TEMP 98; O2SAT 99
[2022-09-12] MEDS: IV NS 0.9% 1,000 ML IV PRN (13:59)
[2022-09-12 16:00] VITALS: BP 103/70; TEMP 98.2; O2SAT 99
[2022-09-12 20:36] VITALS: BP 142/80; TEMP 98.9; O2SAT 98
[2022-09-12] MEDS: ONDANSETRON HCL/PF 4 MG/2 ML VIAL IVP PRN (21:30)
[2022-09-13] VITALS: BP 91/54; TEMP 98.9; O2SAT 98
[2022-09-13] MEDS: PIPERACILLIN /TAZOBACTAM 3.375 G in IV D5W 100 ML IV SCH ×3 (01:33→17:12)
[2022-09-13 04:00] VITALS: BP 98/60; TEMP 98.1; O2SAT 97
[2022-09-13] MEDS: ONDANSETRON HCL/PF 4 MG/2 ML VIAL IVP PRN ×3 (05:53→16:11)
[2022-09-13 08:00] VITALS: BP 98/50; TEMP 98.3; O2SAT 98
[2022-09-13 08:10] LABS: CALCIUM, SERUM 7.5 mg/dL (8.5-10.1); CREATININE 1.1 mg/dL (0.6-1.3); POTASSIUM 3.4 mmol/L (3.5-5.1)
[2022-09-13] MEDS: PANTOPRAZOLE 40 MG TABLET.DR PO SCH (08:48)
[2022-09-13] MEDS: POTASSIUM CHLORIDE 20 MEQ TAB.PRT.SR PO SCH ×2 (11:00→11:10)
[2022-09-13 12:00] VITALS: BP 98/56; TEMP 99.2; O2SAT 98
[2022-09-13 16:00] VITALS: BP 90/57; TEMP 99.2; O2SAT 98
[2022-09-13] MEDS: ACETAMINOPHEN 325 MG TABLET PO PRN (16:11)
[2022-09-13] MEDS ORDERED: LOPERAMIDE HCL (2 MG CAP) 2 MG CAPSULE PO PRN (18:30)
[2022-09-13 20:00] VITALS: BP 91/60; O2SAT 98
[2022-09-14] VITALS: BP 88/58; TEMP 97.8; O2SAT 98
[2022-09-14] MEDS: IV NS 0.9% 1,000 ML IV PRN (00:36)
[2022-09-14] MEDS: PIPERACILLIN /TAZOBACTAM 3.375 G in IV D5W 100 ML IV SCH ×3 (02:03→17:58)
[2022-09-14 04:00] VITALS: BP 80/40; TEMP 98.3; O2SAT 99
[2022-09-14 08:00] VITALS: BP 98/59; TEMP 98.2; O2SAT 95
[2022-09-14] MEDS: PANTOPRAZOLE 40 MG TABLET.DR PO SCH (08:20)
[2022-09-14] MEDS: PROSOURCE / PROSTAT (PYXIS) 30 ML UDC PO SCH ×2 (09:06→17:28)
[2022-09-14 12:00] VITALS: BP 107/45; TEMP 98; O2SAT 99
[2022-09-14] MEDS ORDERED: MIDODRINE HCL (5MG) 5 MG TABLET PO ONE (14:00)
[2022-09-14 16:00] VITALS: BP 111/54; TEMP 98; O2SAT 99
[2022-09-14 20:00] VITALS: BP 109/55; TEMP 98.6; O2SAT 98
[2022-09-14] MEDS ORDERED: diphenhydrAMINE HCL 50 MG/ML VIAL IV ONE (21:00)
[2022-09-15] VITALS: BP 109/55; TEMP 98.6; O2SAT 98
[2022-09-15] MEDS: PIPERACILLIN /TAZOBACTAM 3.375 G in IV D5W 100 ML IV SCH (02:00)
[2022-09-15 04:00] VITALS: BP 95/47; TEMP 98; O2SAT 98
[2022-09-15] MEDS ORDERED: diphenhydrAMINE HCL 50 MG/ML VIAL IV ONE (06:00)
[2022-09-15] MEDS ORDERED: PRED20TA PO (07:46)
[2022-09-15 08:00] VITALS: BP 111/67; TEMP 98; O2SAT 98
[2022-09-15] MEDS ORDERED: dexaMETHasone SOD PHOSPHATE 10 MG/ML VIAL IM ONE (08:00)
[2022-09-15] MEDS: PANTOPRAZOLE 40 MG TABLET.DR PO SCH (08:27)
[2022-09-15] MEDS: PROSOURCE / PROSTAT (PYXIS) 30 ML UDC PO SCH ×2 (08:27→17:49)
[2022-09-15 12:00] VITALS: BP 111/67; TEMP 98.3; O2SAT 98
[2022-09-15 17:02] VITALS: BP 109/60; TEMP 98.1; O2SAT 98
[2022-09-15 20:00] VITALS: BP 121/61; TEMP 98.1; O2SAT 99
[2022-09-16 04:00] VITALS: BP 107/61; TEMP 97.9; O2SAT 94
[2022-09-16] MEDS: IV NS 0.9% 1,000 ML IV PRN (04:30)
[2022-09-16 06:37] LABS: CALCIUM, SERUM 8.3 mg/dL (8.5-10.1); CREATININE 0.9 mg/dL (0.6-1.3)
[2022-09-16 07:26] LABS: POTASSIUM 2.6 mmol/L (3.5-5.1)
[2022-09-16] MEDS: PROSOURCE / PROSTAT (PYXIS) 30 ML UDC PO SCH ×2 (08:10→17:01)
[2022-09-16] MEDS: PANTOPRAZOLE 40 MG TABLET.DR PO SCH (08:10)
[2022-09-16] MEDS ORDERED: POTASSIUM CHLORIDE 20 MEQ TAB.PRT.SR PO ONE ×2 (11:00→12:30)
[2022-09-16 12:00] VITALS: BP 110/80; TEMP 97.9; O2SAT 94
[2022-09-16 16:29] VITALS: BP 123/71; TEMP 97.9; O2SAT 94
[2022-09-16 20:00] VITALS: BP 136/73; TEMP 98.7; O2SAT 100
[2022-09-17 04:00] VITALS: BP 143/68; TEMP 98; O2SAT 100
[2022-09-17] MEDS: PANTOPRAZOLE 40 MG TABLET.DR PO SCH (09:12)
[2022-09-17] MEDS: PROSOURCE / PROSTAT (PYXIS) 30 ML UDC PO SCH ×2 (09:12→17:00)
[2022-09-17 09:20] LABS: BASOPHILS # (AUTO) 0.1 K/uL (0.0-0.2); BASOPHILS % (AUTO) 0.5 % (0.0-2.0); EOSINOPHILS # (AUTO) 0.6 K/uL (0.0-0.7); EOSINOPHILS % (AUTO) 3.4 % (0.0-6.0); HEMATOCRIT 35 % (33-45); HEMOGLOBIN 11.3 g/dL (11.5-14.8); LYMPHOCYTES # (AUTO) 12.5 K/uL (0.8-4.8); LYMPHOCYTES % (AUTO) 70.8 % (20.0-44.0); MEAN CORPUSCULAR HEMOGLOBIN 30 PG (26.0-33.0); MEAN CORPUSCULAR HGB CONC 33 g/dl (31.0-36.0); MEAN CORPUSCULAR VOLUME 91 fL (82-100); MONOCYTES # (AUTO) 0.5 K/uL (0.1-1.30); MONOCYTES % (AUTO) 2.6 % (2.0-12.0); NEUTROPHILS % (AUTO) 22.7 % (43.0-81.0); PLATELET COUNT (AUTO) 236 K/uL (150-450); RED BLOOD CELL COUNT(AUTO) 3.81 MIL/uL (4.0-5.2); RED CELL DISTRIBUTION WIDTH 15.5 % (11.5-15.0); WHITE BLOOD COUNT (AUTO) 17.6 K/uL (4.3-11.0)
[2022-09-17 09:51] LABS: ALBUMIN 1.8 g/dL (3.4-5.0); BILIRUBIN,TOTAL 0.7 mg/dL (0.2-1.0); CALCIUM, SERUM 7.9 mg/dL (8.5-10.1); CREATININE 0.8 mg/dL (0.6-1.3); PHOSPHORUS 2.8 mg/dL (2.5-4.9); POTASSIUM 3.4 mmol/L (3.5-5.1); TOTAL PROTEIN, SERUM 4.8 g/dL (6.4-8.2)
[2022-09-17 09:55] LABS: MAGNESIUM 1.2 mg/dL (1.8-2.4)
[2022-09-17 12:00] VITALS: BP 106/68; TEMP 97.8; O2SAT 100
[2022-09-17] MEDS: Magnesium 1GM/D5W 100ML PREMIX 100 ML IV SCH ×4 (12:45→17:23)
[2022-09-17 12:59] LABS: ANISOCYTOSIS 1+; BASOPHILS % (MANUAL) 0 % (0.0-2.0); EOSINOPHILS % (MANUAL) 3 % (0-4); LYMPHOCYTES % (MANUAL) 54 % (16-48); MONOCYTES % (MANUAL) 8 % (0-11.0); NEUTROPHILS % (MANUAL) 35 (42-76); PLATELET ESTIMATE ADEQUATE
[2022-09-17 21:30] VITALS: BP 125/59; TEMP 98.5; O2SAT 99
[2022-09-18] MEDS ORDERED: diphenhydrAMINE HCL 25 MG CAPSULE PO ONE ×2 (05:30→22:30)
[2022-09-18 05:32] VITALS: BP 137/75; TEMP 98; O2SAT 98
[2022-09-18] MEDS: PANTOPRAZOLE 40 MG TABLET.DR PO SCH (08:19)
[2022-09-18] MEDS: PROSOURCE / PROSTAT (PYXIS) 30 ML UDC PO SCH ×2 (08:24→16:29)
[2022-09-18 12:00] VITALS: BP 96/50; TEMP 99.7; O2SAT 100
[2022-09-18 20:00] VITALS: BP 122/62; TEMP 98; O2SAT 100
[2022-09-19 04:00] VITALS: BP 148/70; TEMP 98; O2SAT 100
[2022-09-19] MEDS: PROSOURCE / PROSTAT (PYXIS) 30 ML UDC PO SCH (09:01)
[2022-09-19] MEDS: PANTOPRAZOLE 40 MG TABLET.DR PO SCH (09:01)
[2022-09-19 12:06] VITALS: BP 137/71; TEMP 97.9; O2SAT 100
== END 2022-09-19 14:20 | DRG 817 ==
LOC: ER 11:37 → TRANSITION 22:59 → TELE-TD 09-10 07:49 → TELE1 09-10 08:11 → TELE-TD 09-10 08:13 → TELE1 09-11 14:35 → MEDSG1 09-13 18:24 → UNDODISIN 09-13 21:20
PROVIDERS: ADMIT Nurse Practitioner Acute Care; ATTEND Internal Medicine
PROC: 05HC33Z Insertion of Infusion Device into Left Basilic Vein, Percutaneous Approach (ICD-10-PCS; principal; 2022-09-13)
DX: T43.212A Poisoning by selective serotonin and norepinephrine reuptake inhibitors, intentional self-harm, initial encounter (principal); J69.0 Pneumonitis due to inhalation of food and vomit; R45.851 Suicidal ideations; E87.0 Hyperosmolality and hypernatremia; I95.9 Hypotension, unspecified; E87.6 Hypokalemia; T43.222A Poisoning by selective serotonin reuptake inhibitors, intentional self-harm, initial encounter; Y92.9 Unspecified place or not applicable; N39.0 Urinary tract infection, site not specified; Z20.822 Contact with and (suspected) exposure to COVID-19; Z90.49 Acquired absence of other specified parts of digestive tract; Z91.018 Allergy to other foods; Z91.048 Other nonmedicinal substance allergy status; Z79.899 Other long term (current) drug therapy; R94.31 Abnormal electrocardiogram [ECG] [EKG]; Z80.9 Family history of malignant neoplasm, unspecified; Z83.3 Family history of diabetes mellitus; F31.30 Bipolar disorder, current episode depressed, mild or moderate severity, unspecified; F60.9 Personality disorder, unspecified; E88.09 Other disorders of plasma-protein metabolism, not elsewhere classified; I45.10 Unspecified right bundle-branch block; Z87.11 Personal history of peptic ulcer disease; Z91.148 Patient's other noncompliance with medication regimen for other reason; Z91.51 Personal history of suicidal behavior; L23.89 Allergic contact dermatitis due to other agents; T36.0X5A Adverse effect of penicillins, initial encounter; Y92.239 Unspecified place in hospital as the place of occurrence of the external cause
CPT/HCPCS: 36410; 36415; 71045-TC; 80048-TC; 80053-TC; 80076-TC; 80164-TC; 81001; 82962-TC; 83735-TC; 84100-TC; 84443-TC; 85025-TC; 87086-TC; 97112-TC; 97116-TC; 97530-TC; A4223; C9113; G0378; G0480; J0696; J1100; J1200; J2405; J2543; J3475; J3480; J3490; J7030; J7050; J7060; Q0163